=== PATIENT | female | born 1935 | race Caucasian/White ===

== ENCOUNTER 2017-06-15 16:32 | Emergency (ER) | payer BC ==
[~2017-06-15] VITALS: Ht 170.1 cm; Wt 83.9 kg
[2017-06-15 17:13] LABS: BILIRUBIN NEGATIVE (NEGATIVE); BLOOD NEGATIVE (NEGATIVE); CLARITY CLEAR (CLEAR); COLOR YELLOW (YELLOW); GLUCOSE NEGATIVE (NEGATIVE); KETONE TRACE (NEGATIVE); LEUKO ESTERASE TRACE (NEGATIVE); NITRITE NEGATIVE (NEGATIVE); SPECIFIC GRAVITY <= 1.005 (1.005-1.030); UROBILINOGEN 0.2 E.U./dl (0.2-1.0)
[2017-06-15 17:22] LABS: BACTERIA 1+
== END 2017-06-15 19:15 | disposition short-term general hospital (02) ==
LOC: ED 16:32
PROVIDERS: Emergency Medicine
DX: S32.10XA Unspecified fracture of sacrum, initial encounter for closed fracture (principal); M48.06 Spinal stenosis, lumbar region; R33.9 Retention of urine, unspecified; W19.XXXA Unspecified fall, initial encounter; Y93.89 Activity, other specified; Y92.89 Other specified places as the place of occurrence of the external cause; Y99.8 Other external cause status

== ENCOUNTER 2024-02-09 20:59 | Inpatient (IN) | payer OTHER ==
[~2024-02-09] VITALS: Ht 165.1 cm; Wt 87.7 kg
[2024-02-09 21:08] VITALS: BP 141/69
[2024-02-09] MEDS ORDERED: methylPREDNISolone sod succ 125 MG VIAL IV ONE (21:10)
[2024-02-09] MEDS ORDERED: Albuterol Sulf/Ipratropium 3 ML VIAL NEB ONE (21:10)
[2024-02-09 21:40] LABS: BASO % 0.2 % (0.0-1.0); EOS # 0.3 10*3/uL (0.0-0.4); HEMATOCRIT 28.4 % (37.0-47.0); LYMPH % 12.2 % (27.0-41.0); MEAN CELL VOLUME 89.9 fl (81.0-99.0); MEAN CORPUSCULAR HGB 28.5 pg (27.0-31.0); MEAN CORPUSCULAR HGB CONC 31.7 g/dl (33.0-37.0); MEAN PLATELET VOLUME 7.9 fl (9.6-12.3); MONO # 0.7 10*3/uL (0.1-1.0); MONO % 8.4 % (3.0-9.0); NEUT # 6.1 10*3/uL (2.3-7.9); NEUT % 74.7 % (47.0-73.0); PLATELET COUNT AUTOMATED 333 10*3/uL (130-400); RED BLOOD COUNT 3.16 10*6/uL (4.10-5.10); RED CELL DISTRI WIDTH 17.5 % (0-14.5); WHITE BLOOD COUNT 8.2 10*3/uL (4.8-10.8)
[2024-02-09 21:51] LABS: ACT PARTIAL THROMBO TIME 31.2 SECONDS (20.0-32.1)
[2024-02-09 21:57] LABS: ALKALINE PHOSPHATASE 172 U/L (46-116); BUN 6 mg/dl (9-23); CHLORIDE 99 mmol/L (98-107); LIPASE 27 U/L (12-53); POTASSIUM 3.3 mmol/L (3.4-5.1); TOTAL PROTEIN 5.7 gm/dL (6.0-8.0)
[2024-02-09 22:00] LABS: SGPT/ALT < 7 U/L (5-49)
[2024-02-09] MEDS ORDERED: POTASSIUM CHLORIDE 20 MEQ TAB PO ONE (23:20)
[2024-02-09] MEDS ORDERED: FUROSEMIDE 20 MG/2 ML VIAL IV ONE (23:30)
[2024-02-09] MEDS ORDERED: AZITHROMYCIN 250 ML IV ONE (23:30)
[2024-02-09] MEDS ORDERED: Ceftriaxone Sodium 1 GM/10 ML SYR IV ONE (23:30)
[2024-02-10] VITALS: BP 128/62
[2024-02-10 01:58] LABS: BILIRUBIN Negative (Negative); BLOOD Negative (Negative); CLARITY Clear (Clear); COLOR Yellow (Yellow); GLUCOSE Negative (Negative); KETONE Negative (Negative); LEUKO ESTERASE Negative (Negative); NITRITE Negative (Negative); SPECIFIC GRAVITY <= 1.005 (1.001-1.030); UROBILINOGEN 0.2 E.U./dl (0.0-1.0)
[2024-02-10 02:20] LABS: WBC 0-2 wbc/hpf (0-5)
[2024-02-10 04:00] VITALS: BP 124/70
[2024-02-10 06:10] LABS: CHLORIDE 99 mmol/L (98-107); POTASSIUM 3.3 mmol/L (3.4-5.1)
[2024-02-10 06:16] LABS: BUN < 5 mg/dl (9-23)
[2024-02-10 06:20] LABS: HEMATOCRIT 29.2 % (37.0-47.0); MEAN CELL VOLUME 87.7 fl (81.0-99.0); MEAN CORPUSCULAR HGB 28.2 pg (27.0-31.0); MEAN CORPUSCULAR HGB CONC 32.2 g/dl (33.0-37.0); PLATELET COUNT AUTOMATED 365 10*3/uL (130-400); RED BLOOD COUNT 3.33 10*6/uL (4.10-5.10); RED CELL DISTRI WIDTH 17.4 % (0-14.5); WHITE BLOOD COUNT 7.3 10*3/uL (4.8-10.8)
[2024-02-10 06:21] VITALS: BP 130/73
[2024-02-10 06:22] LABS: MANUAL DIFF REFLEX YES
[2024-02-10 07:19] LABS: BURR CELLS FEW; OVALOCYTES FEW; PLATELET SUFFICIENCY NORMAL (NORMAL); POLYCHROMASIA SLIGHT; TOTAL CELLS COUNTED 100 #CELLS
[2024-02-10] MEDS ORDERED: SODIUM CHLORIDE 0.9% 1,000 ML IV SCH (08:00)
[2024-02-10] MEDS ORDERED: Albuterol Sulf/Ipratropium 3 ML VIAL NEB SCH (08:00)
[2024-02-10] MEDS ORDERED: SALINE NOSE SPR45 ML NAS (09:43)
[2024-02-10] MEDS ORDERED: MUCINEX D ER 61 EACH PO (09:44)
[2024-02-10] MEDS ORDERED: Ipratropium Brom3 ML INH (09:45)
[2024-02-10] MEDS ORDERED: LEVOTHYROXINE125 MCG PO (09:45)
[2024-02-10] MEDS ORDERED: DULOXETINE HCL30 MG PO (09:46)
[2024-02-10] MEDS ORDERED: ALENDRONATE SOD70 M1 PO (09:46)
[2024-02-10] MEDS ORDERED: VITAMIN D350 MC3 PO (09:48)
[2024-02-10] MEDS ORDERED: ASPIRIN ADULT L81 M1 PO (09:48)
[2024-02-10] MEDS ORDERED: DILTIAZEM 24HR180 MG PO (09:49)
[2024-02-10] MEDS ORDERED: SODIUM CHLORI1000 M5 PO (09:50)
[2024-02-10] MEDS ORDERED: OXYCODONE-ACET1 EAC3 PO (09:53)
[2024-02-10 09:57] VITALS: BP 152/81
[2024-02-10] MEDS ORDERED: GUAIFENESIN 600 MG TAB ER PO SCH (10:00)
[2024-02-10] MEDS ORDERED: Enoxaparin Sodium 30 MG/0.3 ML SYR SC SCH (10:00)
[2024-02-10] MEDS ORDERED: Duloxetine Hydrochloride 30 MG CAP PO SCH (10:00)
[2024-02-10] MEDS ORDERED: POTASSIUM CHLORIDE 20 MEQ TAB PO SCH (10:00)
[2024-02-10] MEDS ORDERED: Levothyroxine Sodium 125 MCG TAB PO SCH (10:00)
[2024-02-10 12:00] VITALS: BP 145/73
[2024-02-10] MEDS ORDERED: IOHEXOL 300 MG/ML 100 ML VIAL IV ONE (12:00)
[2024-02-10] MEDS ORDERED: FUROSEMIDE 40 MG/4 ML VIAL IV SCH (18:00)
[2024-02-10 20:00] VITALS: BP 123/99
[2024-02-10] MEDS ORDERED: NITROGLYCERIN 0.4 MG BOT SL ONE (22:00)
[2024-02-10] MEDS ORDERED: Ceftriaxone Sodium 1 GM in SYRINGE INFUSION 10 ML IV SCH (22:00)
[2024-02-10] MEDS ORDERED: AZITHROMYCIN 250 ML IV SCH (23:00)
[2024-02-11] VITALS: BP 144/76
[2024-02-11] MEDS ORDERED: ACETAMINOPHEN 325 MG TAB PO PRN (04:10)
[2024-02-11] MEDS ORDERED: POTASSIUM CHLORIDE 20 MEQ TAB PO ONE (07:55)
[2024-02-11 08:00] VITALS: BP 138/92
[2024-02-11] MEDS ORDERED: FUROSEMIDE 100 MG/10 ML VIAL IV SCH (10:00)
[2024-02-11 12:00] VITALS: BP 131/68
[2024-02-11] MEDS ORDERED: SPIRONOLACTONE 25 MG TAB PO SCH (15:30)
[2024-02-11 16:00] VITALS: BP 151/79
[2024-02-11 20:00] VITALS: BP 151/72
[2024-02-12] VITALS: BP 153/85
[2024-02-12 07:10] LABS: BASO % 0.4 % (0.0-1.0); EOS # 0.3 10*3/uL (0.0-0.4); EOS % 3.9 % (1.0-4.0); HEMATOCRIT 28.7 % (37.0-47.0); LYMPH # 1.2 10*3/uL (1.3-4.4); LYMPH % 15.8 % (27.0-41.0); MEAN CELL VOLUME 88.6 fl (81.0-99.0); MEAN CORPUSCULAR HGB 28.1 pg (27.0-31.0); MEAN CORPUSCULAR HGB CONC 31.7 g/dl (33.0-37.0); MEAN PLATELET VOLUME 8.3 fl (9.6-12.3); MONO # 0.9 10*3/uL (0.1-1.0); MONO % 12.3 % (3.0-9.0); NEUT # 5.1 10*3/uL (2.3-7.9); NEUT % 66.9 % (47.0-73.0); PLATELET COUNT AUTOMATED 382 10*3/uL (130-400); RED BLOOD COUNT 3.24 10*6/uL (4.10-5.10); WHITE BLOOD COUNT 7.7 10*3/uL (4.8-10.8)
[2024-02-12 07:36] LABS: BUN 8 mg/dl (9-23); CHLORIDE 94 mmol/L (98-107); POTASSIUM 3.5 mmol/L (3.4-5.1)
[2024-02-12 08:00] VITALS: BP 163/87
[2024-02-12] MEDS ORDERED: FUROSEMIDE 40 MG/4 ML VIAL IV SCH (10:00)
[2024-02-12] MEDS ORDERED: SPIRONOLACTONE 25 MG TAB PO ONE (10:20)
[2024-02-12 12:00] VITALS: BP 135/71
[2024-02-12] MEDS ORDERED: Atropine Sulfate/Diphenoxyla 1 TAB TAB PO PRN (14:25)
[2024-02-12 16:00] VITALS: BP 134/70
[2024-02-12] MEDS ORDERED: Albuterol Sulf/Ipratropium 3 ML VIAL NEB SCH (18:50)
[2024-02-12 20:00] VITALS: BP 159/92
[2024-02-12] MEDS ORDERED: GUAIFENESIN 600 MG TAB ER PO SCH (22:00)
[2024-02-12] MEDS ORDERED: methylPREDNISolone sod succ 40 MG VIAL IV SCH (22:00)
[2024-02-13] VITALS: BP 168/80
[2024-02-13 08:00] VITALS: BP 165/80
[2024-02-13] MEDS ORDERED: SPIRONOLACTONE 25 MG TAB PO SCH (10:00)
[2024-02-13 12:00] VITALS: BP 147/86
[2024-02-13 16:00] VITALS: BP 140/67
[2024-02-13 20:00] VITALS: BP 151/77
[2024-02-14] VITALS: BP 145/89
[2024-02-14 08:00] VITALS: BP 164/88
[2024-02-14 12:00] VITALS: BP 139/68
[2024-02-14 16:00] VITALS: BP 154/71
[2024-02-14 20:00] VITALS: BP 134/66
[2024-02-15] VITALS: BP 163/86
[2024-02-15 00:30] VITALS: BP 146/70
[2024-02-15 08:00] VITALS: BP 144/70
[2024-02-15] MEDS ORDERED: LASIX40 MG PO (08:10)
[2024-02-15] MEDS ORDERED: ALDACTONE25 MG PO (08:10)
[2024-02-15] MEDS ORDERED: CEFUROXIME AXE250 MG PO (08:10)
[2024-02-15] MEDS ORDERED: TOPROL XL25 MG PO (08:45)
[2024-02-15 12:00] VITALS: BP 146/66
== END 2024-02-15 16:36 | DRG 291 ==
LOC: ED 20:59 → 4E 23:34 → EDHOLD 23:34 → 4E 02-10 09:29
PROVIDERS: Internal Medicine; ADMIT Internal Medicine; ATTEND Internal Medicine
DX: I11.0 Hypertensive heart disease with heart failure (principal); I50.31 Acute diastolic (congestive) heart failure; J45.901 Unspecified asthma with (acute) exacerbation; E87.1 Hypo-osmolality and hyponatremia; J44.1 Chronic obstructive pulmonary disease with (acute) exacerbation; J44.0 Chronic obstructive pulmonary disease with (acute) lower respiratory infection; R91.1 Solitary pulmonary nodule; J20.9 Acute bronchitis, unspecified; R62.7 Adult failure to thrive; R91.8 Other nonspecific abnormal finding of lung field; D64.9 Anemia, unspecified; E66.01 Morbid (severe) obesity due to excess calories; E87.8 Other disorders of electrolyte and fluid balance, not elsewhere classified; Z96.642 Presence of left artificial hip joint; E87.6 Hypokalemia; M48.061 Spinal stenosis, lumbar region without neurogenic claudication; R73.9 Hyperglycemia, unspecified; R33.9 Retention of urine, unspecified; E03.9 Hypothyroidism, unspecified; Z90.710 Acquired absence of both cervix and uterus; Z90.13 Acquired absence of bilateral breasts and nipples; Z79.1 Long term (current) use of non-steroidal anti-inflammatories (NSAID); Z79.899 Other long term (current) drug therapy; Z79.82 Long term (current) use of aspirin; Z85.3 Personal history of malignant neoplasm of breast; Z87.81 Personal history of (healed) traumatic fracture; Z68.33 Body mass index [BMI] 33.0-33.9, adult

== ENCOUNTER 2024-02-25 09:50 | Emergency (ER) | payer OTHER ==
[~2024-02-25] VITALS: Ht 165.1 cm
[~2024-02-25 09:50] MED LIST: ALDACTONE25 MG PO; ALENDRONATE SOD70 M1 PO; ASPIRIN ADULT L81 M1 PO; CEFUROXIME AXE250 MG PO; DILTIAZEM 24HR180 MG PO; DULOXETINE HCL30 MG PO; Ipratropium Brom3 ML INH; LASIX40 MG PO; LEVOTHYROXINE125 MCG PO; MUCINEX D ER 61 EACH PO; OXYCODONE-ACET1 EAC3 PO; SALINE NOSE SPR45 ML NAS; SODIUM CHLORI1000 M5 PO; TOPROL XL25 MG PO; VITAMIN D350 MC3 PO
[2024-02-25] MEDS ORDERED: FENTANYL1 EAC3 TD (10:18)
[2024-02-25 10:26] LABS: BASO % 0.2 % (0.0-1.0); EOS # 0.2 10*3/uL (0.0-0.4); EOS % 1.7 % (1.0-4.0); HEMATOCRIT 30.6 % (37.0-47.0); LYMPH # 0.7 10*3/uL (1.3-4.4); LYMPH % 5.1 % (27.0-41.0); MEAN CELL VOLUME 87.9 fl (81.0-99.0); MEAN CORPUSCULAR HGB 27.6 pg (27.0-31.0); MEAN CORPUSCULAR HGB CONC 31.4 g/dl (33.0-37.0); MEAN PLATELET VOLUME 8.2 fl (9.6-12.3); MONO # 1.4 10*3/uL (0.1-1.0); MONO % 10.3 % (3.0-9.0); NEUT # 10.6 10*3/uL (2.3-7.9); NEUT % 81.5 % (47.0-73.0); PLATELET COUNT AUTOMATED 337 10*3/uL (130-400); RED BLOOD COUNT 3.48 10*6/uL (4.10-5.10); RED CELL DISTRI WIDTH 17.3 % (0-14.5); WHITE BLOOD COUNT 13.1 10*3/uL (4.8-10.8)
[2024-02-25 10:38] LABS: ACT PARTIAL THROMBO TIME 29.2 SECONDS (20.0-32.1)
[2024-02-25 10:59] LABS: ALKALINE PHOSPHATASE 124 U/L (46-116); BUN 6 mg/dl (9-23); CHLORIDE 94 mmol/L (98-107); POTASSIUM 3.3 mmol/L (3.4-5.1); SGPT/ALT 8 U/L (5-49); TOTAL PROTEIN 6.3 gm/dL (6.0-8.0)
[2024-02-25] MEDS ORDERED: PERCOCET 5-3251 EACH PO (13:05)
== END 2024-02-25 13:24 ==
LOC: ED 09:50
PROVIDERS: Internal Medicine
DX: S32.592A Other specified fracture of left pubis, initial encounter for closed fracture (principal); M25.532 Pain in left wrist; F32.A Depression, unspecified; M19.90 Unspecified osteoarthritis, unspecified site; E03.9 Hypothyroidism, unspecified; Z90.13 Acquired absence of bilateral breasts and nipples; Z90.710 Acquired absence of both cervix and uterus; Z98.890 Other specified postprocedural states; X58.XXXA Exposure to other specified factors, initial encounter; Y93.89 Activity, other specified; Y92.129 Unspecified place in nursing home as the place of occurrence of the external cause; Y99.8 Other external cause status

== ENCOUNTER 2024-03-09 05:21 | Emergency (ER) | payer OTHER ==
[~2024-03-09] VITALS: Ht 165.1 cm; Wt 90.7 kg
[~2024-03-09 05:21] MED LIST changes: +FENTANYL1 EAC3 TD; +PERCOCET 5-3251 EACH PO
[2024-03-09] MEDS ORDERED: Albuterol Sulf/Ipratropium 3 ML VIAL NEB ONE (06:40)
== END 2024-03-09 06:54 ==
LOC: ED 05:21
DX: S00.03XA Contusion of scalp, initial encounter (principal); F32.A Depression, unspecified; M19.90 Unspecified osteoarthritis, unspecified site; E03.9 Hypothyroidism, unspecified; Z90.710 Acquired absence of both cervix and uterus; Z98.890 Other specified postprocedural states; Z90.13 Acquired absence of bilateral breasts and nipples; W06.XXXA Fall from bed, initial encounter; Y93.89 Activity, other specified; Y92.89 Other specified places as the place of occurrence of the external cause; Y99.8 Other external cause status

== ENCOUNTER 2024-04-11 02:05 | Emergency (ER) | payer OTHER ==
[~2024-04-11] VITALS: Wt 88.0 kg
[2024-04-11 02:25] LABS: BILIRUBIN Negative (Negative); BLOOD Negative (Negative); CLARITY Clear (Clear); COLOR Yellow (Yellow); GLUCOSE Negative (Negative); KETONE Trace (Negative); LEUKO ESTERASE Negative (Negative); NITRITE Negative (Negative); PH 7.5 (4.5-8.0); SPECIFIC GRAVITY 1.015 (1.001-1.030)
[2024-04-11 02:46] LABS: BASO % 0.3 % (0.0-1.0); EOS # 0.4 10*3/uL (0.0-0.4); EOS % 4.7 % (1.0-4.0); HEMATOCRIT 29.7 % (37.0-47.0); LYMPH # 1.1 10*3/uL (1.3-4.4); LYMPH % 11.9 % (27.0-41.0); MEAN CORPUSCULAR HGB 26.2 pg (27.0-31.0); MEAN PLATELET VOLUME 8.1 fl (9.6-12.3); MONO # 0.8 10*3/uL (0.1-1.0); MONO % 8.5 % (3.0-9.0); NEUT # 6.8 10*3/uL (2.3-7.9); NEUT % 74.4 % (47.0-73.0); PLATELET COUNT AUTOMATED 300 10*3/uL (130-400); RED BLOOD COUNT 3.62 10*6/uL (4.10-5.10); RED CELL DISTRI WIDTH 15.9 % (0-14.5); WHITE BLOOD COUNT 9.2 10*3/uL (4.8-10.8)
[2024-04-11 03:03] LABS: WBC 0-2 wbc/hpf (0-5)
[2024-04-11 03:06] LABS: BUN 10 mg/dl (9-23); CHLORIDE 94 mmol/L (98-107); POTASSIUM 3.8 mmol/L (3.4-5.1)
== END 2024-04-11 03:55 ==
LOC: ED 02:05
PROVIDERS: Internal Medicine
DX: S32.512A Fracture of superior rim of left pubis, initial encounter for closed fracture (principal); S32.592A Other specified fracture of left pubis, initial encounter for closed fracture; D64.9 Anemia, unspecified; E87.1 Hypo-osmolality and hyponatremia; Z79.899 Other long term (current) drug therapy; Z79.82 Long term (current) use of aspirin; Z90.710 Acquired absence of both cervix and uterus; Z90.89 Acquired absence of other organs; Z96.642 Presence of left artificial hip joint; W06.XXXA Fall from bed, initial encounter; Y93.89 Activity, other specified; Y92.128 Other place in nursing home as the place of occurrence of the external cause; Y99.8 Other external cause status

== ENCOUNTER 2024-04-20 11:52 | Emergency (ER) | payer OTHER ==
[2024-04-20] MEDS ORDERED: Oxymetazoline Hydrochloride Nasal 15 ml bottle NAS ONE (12:05)
[2024-04-20 12:23] LABS: BASO % 0.2 % (0.0-1.0); EOS # 0.5 10*3/uL (0.0-0.4); EOS % 5.5 % (1.0-4.0); HEMATOCRIT 30.3 % (37.0-47.0); LYMPH # 0.9 10*3/uL (1.3-4.4); LYMPH % 9.8 % (27.0-41.0); MEAN CELL VOLUME 81.9 fl (81.0-99.0); MEAN CORPUSCULAR HGB 25.9 pg (27.0-31.0); MEAN CORPUSCULAR HGB CONC 31.7 g/dl (33.0-37.0); MEAN PLATELET VOLUME 7.7 fl (9.6-12.3); MONO # 0.8 10*3/uL (0.1-1.0); MONO % 8.4 % (3.0-9.0); NEUT # 6.9 10*3/uL (2.3-7.9); NEUT % 75.7 % (47.0-73.0); PLATELET COUNT AUTOMATED 297 10*3/uL (130-400); RED CELL DISTRI WIDTH 15.7 % (0-14.5); WHITE BLOOD COUNT 9.1 10*3/uL (4.8-10.8)
[2024-04-20 12:51] LABS: BUN 7 mg/dl (9-23); CHLORIDE 92 mmol/L (98-107); POTASSIUM 3.9 mmol/L (3.4-5.1)
== END 2024-04-20 13:30 | disposition home or self-care (01) ==
LOC: ED 11:52
PROVIDERS: Emergency Medicine
DX: R04.0 Epistaxis (principal); J44.9 Chronic obstructive pulmonary disease, unspecified; I11.0 Hypertensive heart disease with heart failure; I50.9 Heart failure, unspecified; E78.5 Hyperlipidemia, unspecified; F32.A Depression, unspecified; M19.90 Unspecified osteoarthritis, unspecified site; E03.9 Hypothyroidism, unspecified; Z90.13 Acquired absence of bilateral breasts and nipples; Z90.710 Acquired absence of both cervix and uterus; Z98.890 Other specified postprocedural states

== ENCOUNTER 2024-04-24 16:47 | Emergency (ER) | payer OTHER ==
[~2024-04-24] VITALS: Wt 86.2 kg
[2024-04-24] MEDS ORDERED: Ceftriaxone Sodium 1 GM/10 ML SYR IV ONE (17:00)
[2024-04-24 17:18] LABS: BASO % 0.2 % (0.0-1.0); EOS # 0.4 10*3/uL (0.0-0.4); EOS % 4.8 % (1.0-4.0); HEMATOCRIT 30.6 % (37.0-47.0); LYMPH # 1.3 10*3/uL (1.3-4.4); LYMPH % 14.9 % (27.0-41.0); MEAN CELL VOLUME 81.2 fl (81.0-99.0); MEAN CORPUSCULAR HGB 26.3 pg (27.0-31.0); MEAN CORPUSCULAR HGB CONC 32.4 g/dl (33.0-37.0); MEAN PLATELET VOLUME 8.2 fl (9.6-12.3); MONO # 0.8 10*3/uL (0.1-1.0); MONO % 9.2 % (3.0-9.0); NEUT % 70.7 % (47.0-73.0); PLATELET COUNT AUTOMATED 330 10*3/uL (130-400); RED BLOOD COUNT 3.77 10*6/uL (4.10-5.10); WHITE BLOOD COUNT 8.5 10*3/uL (4.8-10.8)
[2024-04-24 17:29] LABS: ACT PARTIAL THROMBO TIME 31.1 SECONDS (20.0-32.1)
[2024-04-24 17:44] LABS: ALKALINE PHOSPHATASE 134 U/L (46-116); BUN 7 mg/dl (9-23); CHLORIDE 93 mmol/L (98-107); POTASSIUM 3.8 mmol/L (3.4-5.1); SGPT/ALT 8 U/L (5-49); TOTAL PROTEIN 6.5 gm/dL (6.0-8.0)
[2024-04-24] MEDS ORDERED: BUSPAR5 MG PO (17:48)
[2024-04-24] MEDS ORDERED: EXELON1 EAC1 TD (17:49)
[2024-04-24] MEDS ORDERED: MELATONIN5 M1 PO (17:50)
[2024-04-24] MEDS ORDERED: SODIUM CHLORI1000 M5 PO (17:52)
[2024-04-24] MEDS ORDERED: VISTARIL25 MG PO (17:53)
[2024-04-24] MEDS ORDERED: ALDACTONE25 M1 PO (17:53)
[2024-04-24] MEDS ORDERED: CEPHALEXIN500 M1 PO (18:11)
== END 2024-04-24 18:28 ==
LOC: ED 16:47
PROVIDERS: Emergency Medicine
DX: R53.1 Weakness (principal); E87.1 Hypo-osmolality and hyponatremia; N39.0 Urinary tract infection, site not specified; I50.9 Heart failure, unspecified; J44.9 Chronic obstructive pulmonary disease, unspecified; D64.9 Anemia, unspecified; F32.A Depression, unspecified; M19.90 Unspecified osteoarthritis, unspecified site; E03.9 Hypothyroidism, unspecified; Z90.13 Acquired absence of bilateral breasts and nipples; Z90.710 Acquired absence of both cervix and uterus; Z98.890 Other specified postprocedural states

== ENCOUNTER 2024-04-30 02:40 | Emergency (ER) | payer OTHER ==
[~2024-04-30] VITALS: Ht 167.6 cm; Wt 81.6 kg
[~2024-04-30 02:40] MED LIST changes: +ALDACTONE25 M1 PO; +BUSPAR5 MG PO; +CEPHALEXIN500 M1 PO; +EXELON1 EAC1 TD; +MELATONIN5 M1 PO; +VISTARIL25 MG PO
== END 2024-04-30 04:08 ==
LOC: ED 02:40
DX: S80.11XA Contusion of right lower leg, initial encounter (principal); I50.9 Heart failure, unspecified; J44.9 Chronic obstructive pulmonary disease, unspecified; Z96.642 Presence of left artificial hip joint; Z79.2 Long term (current) use of antibiotics; Z79.899 Other long term (current) drug therapy; Z90.710 Acquired absence of both cervix and uterus; Z79.82 Long term (current) use of aspirin; Z96.651 Presence of right artificial knee joint; W18.39XA Other fall on same level, initial encounter; Y93.89 Activity, other specified; Y92.128 Other place in nursing home as the place of occurrence of the external cause; Y99.8 Other external cause status

== ENCOUNTER 2024-05-03 05:48 | Emergency (ER) | payer OTHER ==
[~2024-05-03] VITALS: Ht 162.5 cm; Wt 88.0 kg
[2024-05-03] MEDS ORDERED: MILK OF MA400 MG/53 PO (06:04)
[2024-05-03] MEDS ORDERED: SILVADENE,SSD C50 GM T (06:05)
[2024-05-03] MEDS ORDERED: RIVASTIGMINE1 EACH TD (06:06)
[2024-05-03] MEDS ORDERED: FUROSEMIDE40 MG PO (06:09)
[2024-05-03] MEDS ORDERED: GUAIASORB DM 2118 ML PO (06:09)
== END 2024-05-03 06:51 | disposition home or self-care (01) ==
LOC: ED 05:48
DX: M25.552 Pain in left hip (principal); M25.562 Pain in left knee; F03.90 Unspecified dementia, unspecified severity, without behavioral disturbance, psychotic disturbance, mood disturbance, and anxiety; F32.A Depression, unspecified; M19.90 Unspecified osteoarthritis, unspecified site; E03.9 Hypothyroidism, unspecified; Z90.13 Acquired absence of bilateral breasts and nipples; Z90.710 Acquired absence of both cervix and uterus; W05.0XXA Fall from non-moving wheelchair, initial encounter

== ENCOUNTER 2024-05-15 08:48 | Emergency (ER) | payer OTHER ==
[~2024-05-15 08:48] MED LIST changes: +FUROSEMIDE40 MG PO; +GUAIASORB DM 2118 ML PO; +MILK OF MA400 MG/53 PO; +RIVASTIGMINE1 EACH TD; +SILVADENE,SSD C50 GM T
[2024-05-15 09:31] LABS: BASO % 0.3 % (0.0-1.0); EOS # 0.6 10*3/uL (0.0-0.4); EOS % 11.1 % (1.0-4.0); LYMPH % 17.4 % (27.0-41.0); MEAN CELL VOLUME 81.6 fl (81.0-99.0); MEAN CORPUSCULAR HGB 25.3 pg (27.0-31.0); MEAN PLATELET VOLUME 7.9 fl (9.6-12.3); MONO # 0.6 10*3/uL (0.1-1.0); MONO % 10.1 % (3.0-9.0); NEUT # 3.5 10*3/uL (2.3-7.9); NEUT % 60.9 % (47.0-73.0); PLATELET COUNT AUTOMATED 294 10*3/uL (130-400); RED CELL DISTRI WIDTH 17.2 % (0-14.5); WHITE BLOOD COUNT 5.7 10*3/uL (4.8-10.8)
[2024-05-15 09:51] LABS: BUN 12 mg/dl (9-23); CHLORIDE 99 mmol/L (98-107); POTASSIUM 3.7 mmol/L (3.4-5.1)
[2024-05-15] MEDS ORDERED: clonAZEPAM 1 MG TAB PO ONE (10:20)
[2024-05-15 10:44] LABS: BILIRUBIN Negative (Negative); BLOOD Negative (Negative); CLARITY Clear (Clear); COLOR Yellow (Yellow); GLUCOSE Negative (Negative); KETONE Negative (Negative); LEUKO ESTERASE Negative (Negative); NITRITE Negative (Negative); PH 7.5 (4.5-8.0); SPECIFIC GRAVITY 1.015 (1.001-1.030)
[2024-05-15 11:03] LABS: BACTERIA TRACE; WBC 0-2 wbc/hpf (0-5)
== END 2024-05-15 11:37 ==
LOC: ED 08:48
PROVIDERS: Nurse Practitioner Family
DX: R25.1 Tremor, unspecified (principal); F32.A Depression, unspecified; M19.90 Unspecified osteoarthritis, unspecified site; E03.9 Hypothyroidism, unspecified; Z98.890 Other specified postprocedural states; Z90.13 Acquired absence of bilateral breasts and nipples; Z90.710 Acquired absence of both cervix and uterus

== ENCOUNTER 2024-05-20 03:17 | Inpatient (IN) | payer OTHER ==
[2024-05-20] VITALS (7 sets, daily range): BP systolic 97–145; BP diastolic 46–71
[~2024-05-20] VITALS: Ht 172.7 cm; Wt 79.4 kg
[2024-05-20] MEDS ORDERED: methylPREDNISolone sod succ 125 MG VIAL IV ONE (03:25)
[2024-05-20 03:36] LABS: BASO % 0.2 % (0.0-1.0); EOS # 0.4 10*3/uL (0.0-0.4); EOS % 8.3 % (1.0-4.0); HEMATOCRIT 28.6 % (37.0-47.0); LYMPH # 1.2 10*3/uL (1.3-4.4); LYMPH % 22.5 % (27.0-41.0); MEAN CELL VOLUME 80.8 fl (81.0-99.0); MEAN CORPUSCULAR HGB 25.1 pg (27.0-31.0); MEAN CORPUSCULAR HGB CONC 31.1 g/dl (33.0-37.0); MEAN PLATELET VOLUME 8.5 fl (9.6-12.3); MONO # 0.6 10*3/uL (0.1-1.0); MONO % 10.8 % (3.0-9.0); NEUT # 3.1 10*3/uL (2.3-7.9); PLATELET COUNT AUTOMATED 302 10*3/uL (130-400); RED BLOOD COUNT 3.54 10*6/uL (4.10-5.10); RED CELL DISTRI WIDTH 17.2 % (0-14.5); WHITE BLOOD COUNT 5.3 10*3/uL (4.8-10.8)
[2024-05-20 04:00] LABS: ALKALINE PHOSPHATASE 120 U/L (46-116); BUN 13 mg/dl (9-23); CHLORIDE 101 mmol/L (98-107); POTASSIUM 3.7 mmol/L (3.4-5.1); TOTAL PROTEIN 5.8 gm/dL (6.0-8.0)
[2024-05-20 04:02] LABS: SGPT/ALT < 7 U/L (5-49)
[2024-05-20] MEDS ORDERED: GUAIFENESI100 MG/56 PO (04:06)
[2024-05-20] MEDS ORDERED: VITAMIN D325 MCG PO (04:14)
[2024-05-20] MEDS ORDERED: TRAZODONE50 MG PO (04:15)
[2024-05-20] MEDS ORDERED: ATIVAN0.5 MG PO (04:16)
[2024-05-20] MEDS ORDERED: NAMENDA-5 PO (04:18)
[2024-05-20] MEDS ORDERED: AZITHROMYCIN 250 ML IV ONE (06:55)
[2024-05-20] MEDS ORDERED: Ceftriaxone Sodium 1 GM/10 ML SYR IV ONE (06:55)
[2024-05-20] MEDS ORDERED: Albuterol Sulf/Ipratropium 3 ML VIAL NEB SCH (08:20)
[2024-05-20] MEDS ORDERED: Melatonin 5 MG TABLET PO PRN (08:40)
[2024-05-20] MEDS ORDERED: FUROSEMIDE 40 MG/4 ML VIAL IV ONE (08:40)
[2024-05-20 08:51] LABS: ABG BASE EXCESS 4.2 mmol/L (-2.0-3.0); ABG O2 SATURATION 97.2 % (94.0-98.0); ARTERIAL BLOOD GAS PH 7.409 (7.350-7.450)
[2024-05-20] MEDS ORDERED: METOPROLOL SUCCINATE XR 25 MG TAB PO SCH (10:00)
[2024-05-20] MEDS ORDERED: Rivastigmine Tartrate 9.5 MG/24 HR PATCH T SCH (10:00)
[2024-05-20] MEDS ORDERED: busPIRone Hydrochloride 5 MG TAB PO SCH (10:00)
[2024-05-20] MEDS ORDERED: Memantine Hydrochloride 5 MG TAB PO SCH (10:00)
[2024-05-20] MEDS ORDERED: SPIRONOLACTONE 25 MG TAB PO SCH (10:00)
[2024-05-20] MEDS ORDERED: Ceftriaxone Sodium 2 GM in SYRINGE INFUSION 20 ML IV SCH (12:00)
[2024-05-20] MEDS ORDERED: methylPREDNISolone sod succ 40 MG VIAL IV SCH (14:00)
[2024-05-20] MEDS ORDERED: DIAZEPAM 5 MG TAB PO ONE (21:05)
[2024-05-20] MEDS ORDERED: Levothyroxine Sodium 125 MCG TAB PO SCH (22:00)
[2024-05-21] VITALS: BP 127/56
[2024-05-21] MEDS ORDERED: Haloperidol Lactate 5 MG/ML AMP IM ONE (05:30)
[2024-05-21] MEDS ORDERED: Haloperidol Lactate 5 MG/ML AMP ONE (05:40)
[2024-05-21] MEDS ORDERED: AZITHROMYCIN 250 ML IV SCH (06:00)
[2024-05-21 06:18] LABS: HEMATOCRIT 27.1 % (37.0-47.0); LYMPH # 0.8 10*3/uL (1.3-4.4); LYMPH % 10.6 % (27.0-41.0); MEAN CELL VOLUME 78.6 fl (81.0-99.0); MEAN CORPUSCULAR HGB 24.9 pg (27.0-31.0); MEAN CORPUSCULAR HGB CONC 31.7 g/dl (33.0-37.0); MEAN PLATELET VOLUME 8.8 fl (9.6-12.3); MONO # 0.6 10*3/uL (0.1-1.0); NEUT # 6.2 10*3/uL (2.3-7.9); NEUT % 80.9 % (47.0-73.0); PLATELET COUNT AUTOMATED 310 10*3/uL (130-400); RED BLOOD COUNT 3.45 10*6/uL (4.10-5.10); RED CELL DISTRI WIDTH 17.1 % (0-14.5); WHITE BLOOD COUNT 7.6 10*3/uL (4.8-10.8)
[2024-05-21 06:40] LABS: BUN 14 mg/dl (9-23); CHLORIDE 98 mmol/L (98-107); POTASSIUM 3.6 mmol/L (3.4-5.1)
[2024-05-21 08:00] VITALS: BP 155/77
[2024-05-21] MEDS ORDERED: Morphine Sulfate 10 MG/0.5 ML CONCENTRATE ORAL SYRINGE SL PRN (08:35)
[2024-05-21] MEDS ORDERED: DIAZEPAM 5 MG TAB PO PRN (08:45)
[2024-05-21 12:00] VITALS: BP 113/57
[2024-05-21] MEDS ORDERED: Ceftriaxone Sodium 2 GM in SYRINGE INFUSION 20 ML IV SCH (12:00)
[2024-05-21 16:00] VITALS: BP 126/54
[2024-05-21 18:00] VITALS: BP 126/54
[2024-05-21 20:00] VITALS: BP 141/59
[2024-05-21] MEDS ORDERED: Amoxicillin/Clavulanate Pota 875 MG TAB PO SCH (22:00)
[2024-05-22] VITALS: BP 114/50
[2024-05-22 08:00] VITALS: BP 111/59
== END 2024-05-22 12:05 | disposition hospice, home (50) | DRG 189 ==
LOC: ED 03:17 → EDHOLD 06:55 → 4E 06:55
PROVIDERS: Internal Medicine; ADMIT Internal Medicine; ATTEND Internal Medicine
DX: J96.01 Acute respiratory failure with hypoxia (principal); G93.41 Metabolic encephalopathy; I50.33 Acute on chronic diastolic (congestive) heart failure; J44.1 Chronic obstructive pulmonary disease with (acute) exacerbation; E44.1 Mild protein-calorie malnutrition; J44.0 Chronic obstructive pulmonary disease with (acute) lower respiratory infection; E87.3 Alkalosis; I11.0 Hypertensive heart disease with heart failure; J96.02 Acute respiratory failure with hypercapnia; R62.7 Adult failure to thrive; Z96.642 Presence of left artificial hip joint; E03.9 Hypothyroidism, unspecified; Z66 Do not resuscitate; D64.9 Anemia, unspecified; R91.8 Other nonspecific abnormal finding of lung field; Z68.26 Body mass index [BMI] 26.0-26.9, adult; Z85.3 Personal history of malignant neoplasm of breast; Z90.13 Acquired absence of bilateral breasts and nipples; Z51.5 Encounter for palliative care